=== PATIENT | male | born 1990 | race Caucasian/White ===

== ENCOUNTER 2022-04-01 22:48 | Emergency (ER) | payer BC, MEDICAID, SELFPAY ==
[2022-04-01 22:51] VITALS: BP 142/96; PULSE 75; RESP 18; TEMP 36.4; O2SAT 99; BMI 25.8
--- NOTE | 2022-04-01 23:32 | ED_ITS ---
HPI - General Adult General: Chief complaint: General Medical Stated complaint: HERNÁNDEZ Time Seen by Provider: 04/01/22 23:32 History of Present Illness: Mr. Cross is a 32-year-old gentleman who presents to the emergency room due to chest pain and headache. He reports that onset of symptoms was actually number months ago and he has had intermittent episodes at this time. He typically gets a sharp pain to left anterior chest followed by right-sided temporal headache. No specific provoking factors identified. Intensity when present is moderate to severe and resolved spontaneously. No other specific changes in health, exacerbating, or alleviating factors identified. Of note the patient reports that he has planned follow-up. He has been seen for similar and has had history of CT and CTA as well as an MRI. He has both neurology and cardiology follow-up scheduled. Onset (ago): month(s) Location: head and chest Severity: moderate Quality: stabbing Pain Consistency: intermittent Relieving factors: none Exacerbating factors: none Review of Systems General: Reports: 10 or more systems reviewed and unremarkable except in HPI and below PFSH ED PFSH: Medical History No significant past medical history Surgical History No significant past surgical history Social History Smoking and tobacco status: current every day smoker Physical Exam Const: COMMON NORMALS: alert GENERAL APPEARANCE: cooperative and well developed HENMT: COMMON NORMALS: normocephalic and atraumatic HEAD & SCALP: normocephalic and atraumatic Eye: COMMON NORMALS: conjunctivae normal CONJUNCTIVA: Yes conjunctivae normal SCLERA: sclerae normal Neck/C-Spine: COMMON NORMALS: supple GENERAL: Yes trachea midline Resp: COMMON NORMALS: normal respiratory effort and clear to auscultation bilaterally EFFORT & INSPECTION: Yes able to speak in complete sentences AUSCULTATION: clear to auscultation bilaterally Cardio: COMMON NORMALS: regular rate and regular rhythm RATE: regular rate RHYTHM: regular rhythm GI: COMMON NORMALS: Soft to palpation PALPATION: Yes Soft to palpation and No Tenderness to palpation present (GI) PERCUSSION: normal to percussion Extremity: GENERAL: Yes normal exam except as noted and No edema Neuro: COMMON NORMALS: moves all extremities SENSORIUM/ORIENTATION: Yes alert and No Orientation impaired Psych: COMMON NORMALS: mental status grossly normal and Normal thought process present THOUGHT PROCESS: Normal thought process present Course Vital Signs: Vital signs: Vital Signs Temperature 97.5 F L 04/01/22 22:51 Pulse Rate 69 04/02/22 00:24 Respiratory Rate 17 04/02/22 00:24 Blood Pressure 133/90 04/02/22 00:24 Pulse Oximetry 90 04/02/22 00:24 MDM - General Adult Medical Decision Making 32-year-old gentleman presenting with chest discomfort and head pain. He has had similar episodes in the past and has been evaluated. After discussion, the patient wishes to forego further testing in the emergency department. I discussed risks and benefits. Satisfactory for planned outpatient follow-up with cardiology and neurology. Medical Records I reviewed the patient's medical records. Lab Data I reviewed the patient's lab results. Discharge Plan Discharge Patient Disposition: Home Clinical Impression: Head pain, Chest pain Condition: Stable Discharge Orders: Discharge ED (Routine); Ordered 04/02/22 Ordered By: Sreedhar Luna Discharge Diet: Usual diet Discharge Activity: Increase activity as tolerated Activity Restrictions/Additional Instructions: Thank you for visiting the emergency department. You were seen and evaluated for symptoms as discussed including head pain and chest discomfort. The exact cause of your symptoms is unclear. Without doing additional testing here in the emergency department I cannot definitively rule out life-threatening conditions though based on your history I feel that you are appropriately doing the correct things in the outpatient setting. Please keep these appointments including your outpatient stress test. Return to the emergency department for anything that you are concerned about and feel needs emergency department evaluation. Coding Level of Care Code ED Pipe Cleaning Machine Operator for Ayanna Jimenez
[2022-04-02 00:24] VITALS: BP 133/90; PULSE 69; RESP 17; O2SAT 90
== END 2022-04-02 00:26 | disposition home or self-care (01) ==
PROVIDERS: Emergency Provider Emergency Medicine
DX: R51.9 Headache, unspecified (principal); R07.9 Chest pain, unspecified
CPT/HCPCS: 99282

== ENCOUNTER 2022-05-28 14:34 | Emergency (ER) | payer BC, MEDICAID, SELFPAY ==
[2022-05-28 14:40] VITALS: BP 133/78; PULSE 74; RESP 18; TEMP 36.7; O2SAT 98; BMI 25.8
--- NOTE | 2022-05-28 14:43 | XR_ITS ---
WS: [id number] XR chest 1V portable [id number] REASON FOR EXAM: CP FINDINGS: Mild tortuosity the thoracic aorta. Normal heart size. Calcified granulomatous disease in both hemithoraces. No acute pulmonary parenchymal or pleural abnormality. Bony thorax is intact. XR/XR chest 1V portable [id number] IMPRESSION: No acute chest abnormality.
[2022-05-28 15:52] LABS: Basophils # 0.1 10^3/uL (0.0-0.1); Basophils % 0.8 %; Eosinophils # 0.3 10^3/uL (0.0-0.8); Eosinophils % 2.6 %; Hematocrit 46.1 % (42.0-52.0); Hemoglobin 15.4 g/dL (11.7-16.6); Lymphocytes # 2.4 10^3/uL (0.8-4.8); Lymphocytes % 22.6 %; Mean Corpuscular HGB Conc 33.4 g/dL (30.0-36.0); Mean Corpuscular Hemoglobin 29.7 pg (28.0-34.0); Mean Platelet Volume 9.6 fL (7.4-10.4); Monocytes # 0.6 10^3/uL (0.2-0.9); Neutrophils # 7.26 10^3/uL (1.8-7.7); Neutrophils % 67.6 %; Nucleated Red Blood Cells % 0 %; Platelet Count 353 10^3/cmm (130-400); Red Blood Count 5.18 10^6/uL (4.1-5.3); Red Cell Distribution Width 12.2 % (12.1-15.1); White Blood Count 10.7 10^3/uL (4.0-10.0)
[2022-05-28 16:11] LABS: Alanine Aminotransferase 17 U/L (0-41); Albumin Level 4.3 g/dL (3.5-5.2); Alkaline Phosphatase 73 IU/L (40-130); Aspartate Amino Transferase 20 U/L (0-40); Blood Urea Nitrogen 5 mg/dL (6-20); Calcium 9.2 mg/dL (8.5-10.5); Carbon Dioxide 24 mmol/L (22-29); Chloride 107 mmol/L (98-107); Globulin 2.5 g/dL (1.3-4.6); Glomerular Filtration Rate 111.3 mL/min (90-130); Glucose 96 mg/dL (65-115); Osmolality Calculated 293 mOsm/kg (285-295); Sodium 143 mmol/L (136-145); Total Bilirubin 0.3 mg/dL (0.15-1.2); Total Protein 6.8 g/dL (6.6-8.7)
[2022-05-28 16:16] LABS: Troponin(5th) Baseline 6 ng/L (0-15)
[2022-05-28 16:44] VITALS: BP 143/56; PULSE 54; RESP 24; O2SAT 95
--- NOTE | 2022-05-28 16:45 | ED_ITS ---
HPI - Chest Pain General: Chief Complaint: Chest Pain Stated Complaint: chest pain/left side pain Time Seen by Provider: 05/28/22 16:08 History of Present Illness: Patient comes in with intermittent chest pain. States this has been going on for years. States that it has been getting worse recently. States his primary care provider ordered a stress test, however his insurance would not cover it. States comes in today after having another episode of left-sided chest palpitations/pressure that radiates into his left arm. States it last for few minutes when it occurs. He is asymptomatic currently at this time. States he is under a lot of stress. Associated symptoms: Reports palpitations; Deny abdominal pain, dyspnea, fever(s), nausea or vomiting Review of Systems Const: Denies: fever(s) or body aches Eyes: Denies: change in vision or blurry vision ENMT: Denies: throat pain or odynophagia Card: Reports: palpitations; Denies: chest pain Resp: Denies: dyspnea or productive cough GI: Denies: abdominal pain, nausea or vomiting : Denies: flank pain or dysuria Musc: Denies: neck pain or back pain Skin/Breast: Denies: rash or pruritus Neuro: Denies: headache(s) or numbness in extremities Psych: Denies: anxiety or change in appetite Endo: Denies: polyuria or excessive sweating PFSH ED PFSH: Family History Father Hypertension Social History Smoking and tobacco status: current every day smoker (1 ppd) cigarettes Packs smoked per day: 1 Physical Exam Const: COMMON NORMALS: no acute distress, patient oriented x3, healthy appearing and alert HENMT: COMMON NORMALS: normocephalic and atraumatic HEAD & SCALP: normocephalic and atraumatic Eye: COMMON NORMALS: Equal, round and reactive pupils present and EOMs intact bilaterally PUPIL: Yes Equal, round and reactive pupils present Neck/C-Spine: COMMON NORMALS: full ROM and supple Resp: COMMON NORMALS: normal respiratory effort, No retractions and No use of accessory muscles Cardio: COMMON NORMALS: regular rate and regular rhythm RATE: regular rate RHYTHM: regular rhythm GI: COMMON NORMALS: Normal to inspection, nondistended, normoactive bowel sounds present, Soft to palpation and non-tender PALPATION: Yes Soft to palpation Back/Pelvis: COMMON NORMALS: thoracic and lumbar spine normal to inspection and no thoracic nor lumbar tenderness Extremity: COMMON NORMALS: normal to inspection and full ROM Neuro: COMMON NORMALS: patient oriented x3 SENSORIUM/ORIENTATION: Yes alert Psych: COMMON NORMALS: mental status grossly normal and cooperative Skin: COMMON NORMALS: no rashes or lesions noted and no wounds GENERAL SKIN EXAM: no rashes or lesions noted Course Vital Signs: Vital signs: Vital Signs Temperature 98.0 F 05/28/22 14:40 Pulse Rate 74 05/28/22 14:40 Respiratory Rate 18 05/28/22 14:40 Blood Pressure 133/78 05/28/22 14:40 Pulse Oximetry 98 05/28/22 14:40 Oxygen Delivery Me thod 05/28/22 14:40 MDM - Chest Pain Medical Decision Making Patient comes in with intermittent chest pain. States this has been going on for years. States that it has been getting worse recently. States his primary care provider ordered a stress test, however his insurance would not cover it. States comes in today after having another episode of left-sided chest palpitations/pressure that radiates into his left arm. States it last for few minutes when it occurs. He is asymptomatic currently at this time. States he is under a lot of stress. Physical exam is unremarkable. Will check labs, EKG, and reassess. On reassessment I talked to the patient about the test results. We will order a cardiac event monitor and discharged with precautions return for worsening or changing symptoms. Lab Data : 05/28/22 15:42 05/28/22 15:42 Radiology Impressions Chest X-Ray 05/28/22 14:43 IMPRESSION: No acute chest abnormality. Laboratory Results WBC 10.7 10^3/uL (4.0-10.0) H 05/28/22 15:42 RBC 5.18 10^6/uL (4.1-5.3) 05/28/22 15:42 Hgb 15.4 g/dL (11.7-16.6) 05/28/22 15:42 Hct 46.1 % (42.0-52.0) 05/28/22 15:42 MCV 89.0 fl (80-94) 05/28/22 15:42 MCH 29.7 pg (28.0-34.0) 05/28/22 15:42 MCHC 33.4 g/dL (30.0-36.0) 05/28/22 15:42 RDW 12.2 % (12.1-15.1) 05/28/22 15:42 Plt Count 353 10^3/cmm (130-400) 05/28/22 15:42 MPV 9.6 fL (7.4-10.4) 05/28/22 15:42 Neut % (Auto) 67.6 % 05/28/22 15:42 Lymph % (Auto) 22.6 % 05/28/22 15:42 [place] % (Auto) 6.0 % 05/28/22 15:42 Eos % (Auto) 2.6 % 05/28/22 15:42 Baso % (Auto) 0.8 % 05/28/22 15:42 Neut # (Auto) 7.26 10^3/uL (1.8-7.7) 05/28/22 15:42 Lymph # (Auto) 2.4 10^3/uL (0.8-4.8) 05/28/22 15:42 [place] # (Auto) 0.6 10^3/uL (0.2-0.9) 05/28/22 15:42 Eos # (Auto) 0.3 10^3/uL (0.0-0.8) 05/28/22 15:42 Baso # (Auto) 0.1 10^3/uL (0.0-0.1) 05/28/22 15:42 Nucleated RBC % (auto) 0 % 05/28/22 15:42 Nucleated RBCs # 0.0 /100WBC 05/28/22 15:42 Sodium 143 mmol/L (136-145) 05/28/22 15:42 Potassium 4.0 mmol/L (3.5-5.1) 05/28/22 15:42 Chloride 107 mmol/L (98-107) 05/28/22 15:42 Carbon Dioxide 24 mmol/L (22-29) 05/28/22 15:42 Anion Gap 16.0 (5-19) 05/28/22 15:42 BUN 5 mg/dL (6-20) L 05/28/22 15:42 Creatinine 0.8 mg/dL (0.7-1.2) 05/28/22 15:42 GFR Calculation 111.3 mL/min (90-130) 05/28/22 15:42 Glucose 96 mg/dL (65-115) 05/28/22 15:42 Calculated Osmolality 293 mOsm/kg (285-295) 05/28/22 15:42 Calcium 9.2 mg/dL (8.5-10.5) 05/28/22 15:42 Total Bilirubin 0.3 mg/dL (0.15-1.2) 05/28/22 15:42 AST 20 U/L (0-40) 05/28/22 15:42 ALT 17 U/L (0-41) 05/28/22 15:42 Alkaline Phosphatase 73 IU/L (40-130) 05/28/22 15:42 Troponin T Baseline 6 ng/L (0-15) 05/28/22 15:42 Total Protein 6.8 g/dL (6.6-8.7) 05/28/22 15:42 Albumin 4.3 g/dL (3.5-5.2) 05/28/22 15:42 Globulin 2.5 g/dL (1.3-4.6) 05/28/22 15:42 Discharge Plan Discharge Patient Disposition: Home Clinical Impression: Palpitations Condition: Stable Prescriptions: No Action No Known Home Medications Discharge Orders: Discharge ED (Routine); Ordered 05/28/22 Ordered By: Tyler Martin Coding Level of Care Code ED Linter Drier Operator for Ayanna Jimenez
[2022-05-28 16:54] VITALS: BP 143/95; PULSE 76; RESP 16; O2SAT 100
--- NOTE | 2022-05-31 11:42 | DCPLANNER ---
Addendum entered by Alexandrea Briscoe 07/01/22 15:12: Patient had a follow up appointment scheduled with heart care - patient did attend appointment. Addendum entered by Alexandrea Briscoe 06/18/22 08:37: Patient has a follow up appointment scheduled for Wednesday, June 22, 2022 at 1:00. Clinic will call patient with appointment information. Original Note: global transportation manager had message to schedule an outpatient event monitor for patient. global transportation manager faxed signed order to heart care, who will call patient with appointment information.
== END 2022-05-28 16:55 | disposition home or self-care (01) ==
PROVIDERS: Emergency Medicine; Emergency Provider Emergency Medicine
DX: R00.2 Palpitations (principal); F17.210 Nicotine dependence, cigarettes, uncomplicated
CPT/HCPCS: 71045; 80053; 84484; 85025; 99285

== ENCOUNTER 2022-06-05 15:56 | Emergency (ER) | payer BC, MEDICAID, SELFPAY ==
[2022-06-05 16:11] VITALS: BP 141/79; PULSE 82; RESP 16; TEMP 36.9; O2SAT 99; BMI 25.8
[2022-06-05 16:22] VITALS: BP 141/79; PULSE 82; RESP 16; TEMP 36.9; O2SAT 99
--- NOTE | 2022-06-05 16:47 | ED_ITS ---
HPI - General Adult General: Chief complaint: General Medical Stated complaint: head feel hot Time Seen by Provider: 06/05/22 16:21 Source: patient Mode of arrival: ambulatory Limitations: no limitations History of Present Illness: Patient is a 32-year-old male who presents to ED today with a plethora of medical complaints that he feels like possibly started after COVID infection back in December. History is somewhat hard to follow. Essentially he has been having headaches and abnormal sensations to the back of his scalp and face that seem to be intermittent. He sometimes describes them as liquid dripping down the back of his head or face but also feels like at times he is not getting enough blood flow to his brain. Patient has met with a headache specialist and has had CT, CTA, MRI, and MRA of his head/neck all of which were normal. He has also been having intermittent sharp left-sided chest pains-again this has been intermittent for several months. He has no known cardiac history or cardiac risk factors. He states this too has been worked up extensively. At one point somebody is mention doing an outpatient stress test but this has not been completed. He also has some complaints of some numbness/tingling to the left arm but only from the area of the elbow to forearm. He has complaints of bilateral shoulder joint achiness at times. He has an appointment with a neurologist scheduled sometime in July but wonders if our neurologist could potentially see him sooner. He states he mainly is here because of the pain. He states he has been on several different medications all without relief. Onset (ago): month(s) Associated symptoms: Reports chest pain and headache(s); Deny dyspnea, nausea, rash, palpitations, syncope or vomiting Review of Systems Const: Denies: fever(s), chills or body aches ENMT: Denies: throat pain, odynophagia, nasal discharge, nasal congestion, post nasal drip or sinus pain Card: Reports: chest pain; Denies: palpitations, irregular heart rhythm, edema, swelling of feet/ankles, lightheadedness, syncope, pre-syncope, dyspnea on exertion, orthopnea, leg pain with exertion or acrocyanosis Resp: Denies: dyspnea, productive cough, non-productive cough, wheezing, hemoptysis or chest congestion GI: Denies: abdominal pain, nausea, vomiting or diarrhea Musc: Reports: neck pain, extremity pain and joint pain; Denies: back pain, extremity swelling, joint swelling, joint redness or limited range of motion Skin/Breast: Denies: rash, sores, new lesions or changes in skin color Neuro: Reports: headache(s), numbness in extremities and sensory changes; Denies: weakness in extremities, lack of coordination, difficulty walking or dizziness PFSH ED PFSH: Medical History No significant past medical history Surgical History No significant past surgical history Social History Smoking and tobacco status: current every day smoker Physical Exam Const: COMMON NORMALS: no acute distress, average body habitus, patient oriented x3, no limitations, healthy appearing, alert and well nourished GENERAL APPEARANCE: cooperative ORIENTATION/CONSCIOUSNESS: Yes awake, Yes oriented to person, Yes oriented to place and Yes oriented to time HENMT: COMMON NORMALS: normocephalic and atraumatic HEAD & SCALP: normal to inspection, normocephalic and atraumatic Eye: GENERAL EYE: appearance normal, both eyes and all related structures Neck/C-Spine: COMMON NORMALS: full ROM GENERAL: Yes normal visual inspection Resp: COMMON NORMALS: normal respiratory effort Extremity: COMMON NORMALS: normal to inspection and full ROM GENERAL: Yes normal exam except as noted Neuro: [place] COMA SCALE: document GCS findings [place] coma scale eye opening: Spontaneous [place] coma scale verbal response: Orientated [place] coma scale motor response: Obey commands [place] coma scale total score: 15 COMMON NORMALS: patient oriented x3, CN's II-XII intact bilaterally, moves all extremities, no focal motor deficits, no sensory deficits noted and gait normal SENSORIUM/ORIENTATION: Yes alert, Yes oriented to person, Yes oriented to place and Yes oriented to time Skin: COMMON NORMALS: no rashes or lesions noted GENERAL SKIN EXAM: no rashes or lesions noted Course Vital Signs: Vital signs: Vital Signs Temperature 98.4 F 06/05/22 16:22 Pulse Rate 82 06/05/22 16:22 Respiratory Rate 16 06/05/22 16:22 Blood Pressure 141/79 06/05/22 16:22 Pulse Oximetry 99 06/05/22 16:22 Oxygen Delivery Me thod 06/05/22 16:22 MDM - General Adult Medical Decision Making Patient does not have any acute complaints today. He states all of his complaints have seemed to be present since December following a COVID infection. By history, it sounds like patient has had an extensive work-up already in [place] to many of the symptoms including a CT, CTA, MRI, MRA of his head all of which were negative. He has had cardiac testing-again negative. I do not appreciate any focal deficits on his exam. I do not know that his history or physical exam warrants any form of emergent work-up today. He is requesting a potential sooner neurology [id number] will place referral for Dr. Haskins. Recommend continual follow-up with his primary care provider who can continue to work-up symptoms as indicated. Patient is requesting something for pain and these abnormal sensations that he is getting. Patient states he has tried pain medication, NSAIDs, steroids, muscle relaxers all without much relief. I think potentially trying him on some Lyrica might help. Return to ED precautions given. Otherwise I think he needs to continue seeing PCP. Discharge Plan Discharge Patient Disposition: Home Clinical Impression: Burning sensation Condition: Stable Prescriptions: New Lyrica 75 mg capsule 75 mg PO BID Qty: 60 0RF Rx Instructions: May increase to 150mg BID after a week if no clinical response. Discharge Orders: Discharge ED (Routine); Ordered 06/05/22 Ordered By: Nicole Batista Coding Level of Care Code ED [employer]v Parts And Service Director for Aynana Jimenez
--- NOTE | 2022-06-08 09:36 | DCPLANNER ---
Addendum entered by Alexandrea Briscoe 07/01/22 14:35: Patient has a follow up appointment scheduled with neurology - patient did attend appointment. Addendum entered by Alexandrea Briscoe 06/16/22 13:26: Patient has a follow up appointment scheduled for Tuesday, June 28, 2022 at 12:[address] Haskins at neurology. Clinic will call patient with appointment information. Original Note: life sciences manager had message to schedule a follow up appointment for patient with neurology. life sciences manager sent patients information to the front office staff at neurology. Patients information will be printed and reviewed. Clinic will call patient with appointment information.
== END 2022-06-05 17:06 | disposition home or self-care (01) ==
PROVIDERS: Emergency Provider Physician Assistant
DX: R20.8 Other disturbances of skin sensation (principal); F17.210 Nicotine dependence, cigarettes, uncomplicated
CPT/HCPCS: 99283

== ENCOUNTER 2022-06-14 11:28 | Emergency (ER) | payer BC, MEDICAID, SELFPAY ==
[2022-06-14 11:44] VITALS: BP 137/82; PULSE 87; RESP 18; TEMP 37.1; O2SAT 98; BMI 25.8
--- NOTE | 2022-06-14 12:44 | W.ED.EXTPRO ---
HPI - Extremity Problem General: Chief complaint: Back Pain/Injury Stated complaint: Back and shoulder pain Time Seen by Provider: 06/14/22 11:51 Source: patient Mode of arrival: ambulatory Limitations: no limitations History of Present Illness: Patient is a 32-year-old male who presents to ED today with a main complaint of left shoulder pain. Patient states pain has been present intermittently for months but more constant over the past three days. Patient has multiple medical issues that he is currently being worked up for. I saw him last time in the ED and his history was quite overwhelming at that time. All of the complaints from his last visit are still present today. He has continued to seek medical re-evaluations at multiple medical facilities and has been seen by a provider in [place] and [place] since his last ED visit here. Upon last visit we had tried him on Lyrica but he states he took a total of 3 doses and wasn't better so discontinued it. It was also recommended he discontinue by provider at [place]. His main complaint today is his left shoulder pain that seems to be worse with range of motion. No known injury or trauma. Again patient states he has had bilateral shoulder stiffness and pain intermittently for months now. MD Complaint: joint pain Onset (ago): month(s) Pain Consistency: intermittent Location: left and upper extremity (shoulder) Radiation: none Relieving factors: immobilization Exacerbating factors: range of motion Associated symptoms: Reports no associated symptoms and chest pain (chronic intermittent); Deny fever(s) or rash Review of Systems Const: Denies: fever(s), chills, body aches, fatigue or malaise Card: Reports: chest pain (chronic intermittent) Musc: Reports: neck pain (chronic), back pain (chronic), joint pain (chronic; intermittent) and limited range of motion (complains of dec ROM of L shoulder); Denies: extremity pain, extremity swelling, joint swelling, joint redness or joint warmth Skin/Breast: Denies: rash Neuro: Reports: headache(s) (chronic; intermittent); Denies: lack of coordination, difficulty walking, frequent falls or Slurred speech present [facility] ED PFSH: Medical History No significant past medical history Surgical History No significant past surgical history Social History Smoking and tobacco status: current every day smoker Physical Exam Const: COMMON NORMALS: no acute distress, average body habitus, patient oriented x3, no limitations, healthy appearing, alert and well nourished GENERAL APPEARANCE: cooperative ORIENTATION/CONSCIOUSNESS: Yes awake, Yes oriented to person, Yes oriented to place and Yes oriented to time HENMT: COMMON NORMALS: normocephalic and atraumatic HEAD & SCALP: normal to inspection, normocephalic and atraumatic Neck/C-Spine: COMMON NORMALS: full ROM GENERAL: Yes normal visual inspection CERVICAL SPINE: Yes cervical ROM normal, No Cervical spine tenderness, No step off deformity, Yes Paracervical muscle tenderness left and No Paracervical spasm Resp: COMMON NORMALS: normal respiratory effort and clear to auscultation bilaterally AUSCULTATION: clear to auscultation bilaterally Cardio: COMMON NORMALS: regular rate and regular rhythm RATE: regular rate RHYTHM: regular rhythm Extremity: COMMON NORMALS: capillary refill normal, no joint enlargement, no clubbing, cyanosis or edema and no pedal edema GENERAL: Yes normal exam except as noted LEFT UPPER EXTREMITY: Yes shoulder joint Left shoulder joint: Yes ROM (normal flexion/extension/IR and ER; pain with abduction) and Yes neurovascular exam (normal) Neuro: KENYATTA COMA SCALE: document GCS findings [place] coma scale eye opening: Spontaneous [place] coma scale verbal response: Orientated [place] coma scale motor response: Obey commands [place] coma scale total score: 15 COMMON NORMALS: patient oriented x3, moves all extremities, no focal motor deficits and no sensory deficits noted SENSORIUM/ORIENTATION: Yes alert, Yes oriented to person, Yes oriented to place and Yes oriented to time MOTOR EXAM: 5/5 motor strength present throughout Skin: COMMON NORMALS: no rashes or lesions noted GENERAL SKIN EXAM: no rashes or lesions noted Course Vital Signs: Vital signs: Vital Signs Temperature 98.7 F 06/14/22 11:44 Pulse Rate 87 06/14/22 11:44 Respiratory Rate 18 06/14/22 11:44 Blood Pressure 137/82 06/14/22 11:44 Pulse Oximetry 98 06/14/22 11:44 Oxygen Delivery Me thod 06/14/22 11:44 MDM - Extremity (Nontraumatic) Medical Decision Making Patient is a 32-year-old male with a complex history. Please see last visit HPI as well as today for full history. He has sought extensive medical evaluations at multiple medical facilities. His main complaint today seems to be his left shoulder pain. He does have some chronic intermittent complaints regarding his neck. He is tender to palpation of his left paraspinal musculature. No known injury or trauma to the shoulder. Based on his history and other complaints symptoms could be related to a cervical radiculopathy although pathology to the shoulder itself is possible. He states he has been on countless rounds of steroids and muscle relaxers and NSAIDs all without relief. He discontinued the Lyrica after a total of 3 doses that was prescribed at last visit. He is willing to try Gabapentin this time. States he will follow up with his PCP in [place] for further evaluation. Discharge Plan Discharge Patient Disposition: Home Clinical Impression: Cervical radicular pain Condition: Stable Prescriptions: New gabapentin 300 mg capsule 300 mg PO DAILY Qty: 60 0RF Rx Instructions: Take 300mg PO QD x 1 day, then 300mg PO BID x 1 day, then 300mg PO TID thereafter Discontinued pregabalin [Lyrica] 75 mg capsule 75 mg PO BID Qty: 60 0RF Rx Instructions: May increase to 150mg BID after a week if no clinical response. Discharge Orders: Discharge ED (Routine); Ordered 06/14/22 Ordered By: Nicole Batista Coding Level of Care Code ED Ems Instructor for Ayanna Jimenez
== END 2022-06-14 13:07 | disposition home or self-care (01) ==
PROVIDERS: Emergency Provider Physician Assistant
DX: M54.12 Radiculopathy, cervical region (principal); F17.210 Nicotine dependence, cigarettes, uncomplicated
CPT/HCPCS: 99283

== ENCOUNTER 2022-07-03 16:25 | Emergency (ER) | payer BC, MEDICAID, SELFPAY ==
[2022-07-03 16:28] VITALS: BP 138/97; PULSE 82; RESP 14; TEMP 36.6; O2SAT 98; BMI 26.5
--- NOTE | 2022-07-03 16:37 | ED_ITS ---
HPI - Headache General: Chief Complaint: Headache Stated Complaint: Head pain, Numbness Time Seen by Provider: 07/03/22 16:34 Source: patient Mode of arrival: ambulatory Limitations: no limitations History of Present Illness: 32-year-old male states been having headaches along with neck pains for 7 months. He states has been chronic he has had chronic numbness to his left arm as well. He states he had an MRI done of his head recently that was negative he states that his PCP had ordered him an MRI of his C-spine he has not received it yet he states he wants to get one today. States pain is an 8 out of 10 he has no weakness denies any worsening proving factors. Denies any fever Associated symptoms: Deny chest pain, fever(s), nausea, rash or vomiting Review of Systems Const: Denies: fever(s), chills, body aches or change in appetite Eyes: Denies: blurry vision or eye discomfort ENMT: Denies: throat pain or dental pain Card: Denies: chest pain Resp: Denies: dyspnea GI: Denies: abdominal pain, nausea, vomiting or diarrhea : Denies: dysuria Musc: Reports: neck pain Skin/Breast: Denies: rash Neuro: Reports: headache(s) Psych: Denies: depression Ildefonso/Lymph: Denies: easy bruising All/Imm: Denies: urticaria PFSH ED PFSH: Medical History No significant past medical history Surgical History No significant past surgical history Family History Father Hypertension Social History Smoking and tobacco status: never smoked Physical Exam Const: COMMON NORMALS: no acute distress, patient oriented x3 and healthy appearing HENMT: COMMON NORMALS: normocephalic and atraumatic HEAD & SCALP: normocephalic and atraumatic Eye: COMMON NORMALS: Equal, round and reactive pupils present and EOMs intact bilaterally PUPIL: Yes Equal, round and reactive pupils present Neck/C-Spine: COMMON NORMALS: full ROM and supple Chest: COMMONS NORMALS: normal inspection of the chest Resp: COMMON NORMALS: normal respiratory effort Cardio: COMMON NORMALS: regular rate and No murmurs present (Cardio) RATE: regular rate GI: INSPECTION: Yes normal to inspection Extremity: COMMON NORMALS: normal to inspection Neuro: COMMON NORMALS: patient oriented x3, moves all extremities and no focal motor deficits Psych: COMMON NORMALS: mental status grossly normal, Normal thought process present and cooperative THOUGHT PROCESS: Normal thought process present Skin: COMMON NORMALS: no rashes or lesions noted and no wounds GENERAL SKIN EXAM: no rashes or lesions noted Course Vital Signs: Vital signs: Vital Signs Temperature 97.8 F 07/03/22 16:28 Pulse Rate 82 07/03/22 16:28 Respiratory Rate 14 07/03/22 16:28 Blood Pressure 138/97 07/03/22 16:28 Pulse Oximetry 98 07/03/22 16:28 Oxygen Delivery Me thod 07/03/22 16:28 MDM - Headache Medical Decision Making Patient presents here with headache and neck pain its been chronic in nature going on for 7 months. Patient is quite angry here he is demanding an MRI he told me that his physician told him if any came to the ER we would do 1 I explained to him that we do not do outpatient MRI through the ER he has a scheduled MRI and he is to get outpatient I am not able to do the MRI emergently here he has no signs of any acute cord compression or abscess requires an emergent MRI patient became extremely angry refused any treatment patient discharge at this time. Discharge Plan Discharge Patient Disposition: Home Clinical Impression: Neck Pain, Head pain Condition: Stable Prescriptions: No Action ibuprofen 800 mg tablet 800 mg PO Q8H PRN (Reason: pain) Qty: 20 0RF (DME) blood pressure cuff 0 .Route .MEDSUPPLY Qty: 1 0RF Rx Instructions: As directed venlafaxine 75 mg tablet extended release 24hr 75 mg PO DAILY Qty: 14 0RF Rx Instructions: Take one tablet daily for 2 weeks. Then, increase to 150 mg daily. venlafaxine 150 mg tablet extended release 24 hr 150 mg PO DAILY Qty: 30 1RF Rx Instructions: Take one tablet daily. Discharge Orders: Discharge ED (Routine); Ordered 07/03/22 Ordered By: Yuly Brock Referrals: Talya Villavicencio NP [Primary Care Provider] - Discharge Diet: Advance as tolerated Discharge Activity: Resume usual activity Patient Instructions: Headache Coding Level of Care Code ED Aeronautical Engineering Officer for Ayanna Jimenez
== END 2022-07-03 16:46 | disposition home or self-care (01) ==
PROVIDERS: Emergency Provider Emergency Medicine; PCP Nurse Practitioner Family
DX: R51.9 Headache, unspecified (principal); M54.2 Cervicalgia
CPT/HCPCS: 99281

== ENCOUNTER 2022-07-06 08:08 | Outpatient (CLI) | payer BC, MEDICAID, SELFPAY ==
--- NOTE | 2022-07-06 08:00 | MR_ITS ---
WS: [id number] MRI CERVICAL SPINE NONCONTRAST HISTORY: M54.2 - Cervicalgia, LEFT arm numbness. COMPARISON: None available. Technique: Multiplanar, multisequence noncontrast imaging of the cervical spine. Mild straightening of the normal cervical lordosis. No fracture or marrow edema. Mild disc space narrowing and desiccation at C4-5 and C5-6. Signal within the cervical cord is normal. Visualized posterior fossa is unremarkable. Craniocervical junction, C1 and C2 relationship, odontoid process and soft tissues are normal. C2-C3: Normal. C3-C4: Normal. C4-C5: Central to LEFT paracentral disc protrusion. Moderate encroachment into the LEFT foramen. Effa cement and deformity of the LEFT lateral CSF. Small bilateral foraminal osteophytes. C5-C6: Small central disc protrusion and small foraminal osteophytes. C6-C7: Moderate RIGHT foraminal osteophyte and disc protrusion causing mild deformity and narrowing o f the foramen. C7-T1: Normal. T1-T2: Shallow central disc protrusion. No high-grade stenosis. MR/MR cervical spin wo con* [id number] IMPRESSION: 1. C4-5; Central to LEFT paracentral disc protrusion with moderate LEFT forami nal narrowing. Osteophytes contributing to the moderate foraminal stenosis also . 2. Small central disc protrusion at C5-6 and foraminal osteophytes with no hig h-grade stenosis. 3. C6-7; moderate RIGHT foraminal disc osteophyte causing moderate foraminal s tenosis. 4. Shallow central disc protrusion at T1-2.
== END 2022-07-06 08:09 | disposition home or self-care (01) ==
LOC: RAD 08:08
PROVIDERS: PCP Nurse Practitioner Family; Visit Provider Specialist
DX: M51.24 Other intervertebral disc displacement, thoracic region (principal); M25.78 Osteophyte, vertebrae; M50.222 Other cervical disc displacement at C5-C6 level
CPT/HCPCS: 72141

== ENCOUNTER → 2022-07-29 10:25 | Outpatient (BNVA) | payer BC, MEDICAID, SELFPAY | PROVIDERS: PCP Nurse Practitioner Family; Visit Provider Physician Assistant | DX: M47.22 Other spondylosis with radiculopathy, cervical region (principal); M50.221 Other cervical disc displacement at C4-C5 level; M50.222 Other cervical disc displacement at C5-C6 level; M50.223 Other cervical disc displacement at C6-C7 level | CPT/HCPCS: 72050 ==

== ENCOUNTER 2022-07-29 11:26 | Emergency (ER) | payer BC, MEDICAID, SELFPAY ==
[2022-07-29 11:36] VITALS: BP 131/87; PULSE 75; RESP 16; TEMP 36.4; O2SAT 100; BMI 25.8
--- NOTE | 2022-07-29 13:02 | PC.NURSE ---
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
== END 2022-07-29 13:15 | disposition left against medical advice (07) ==
PROVIDERS: Emergency Provider Family Medicine; PCP Nurse Practitioner Family
DX: Z53.21 Procedure and treatment not carried out due to patient leaving prior to being seen by health care provider (principal)
CPT/HCPCS: 85651; 86003; 86140

== ENCOUNTER → 2022-08-04 14:17 | Outpatient (BNVA) | payer BC, MEDICAID, SELFPAY | PROVIDERS: PCP Nurse Practitioner Family; Visit Provider Nurse Practitioner Family | DX: K90.49 Malabsorption due to intolerance, not elsewhere classified (principal); R79.82 Elevated C-reactive protein (CRP); R70.0 Elevated erythrocyte sedimentation rate | CPT/HCPCS: 84443; 86003; 86160; 86162; 86200; 86235; 86255; 86376; 86431 ==

== ENCOUNTER 2022-08-09 21:08 | Emergency (ER) | payer BC, MEDICAID, SELFPAY ==
[2022-08-09 21:47] VITALS: BP 137/81; PULSE 77; RESP 18; TEMP 36.6; O2SAT 98; BMI 25.8
--- NOTE | 2022-08-09 22:06 | W.ED.GENADLT ---
HPI - General Adult General: Chief complaint: General Medical Stated complaint: just wants neck brace Time Seen by Provider: 08/09/22 22:06 History of Present Illness: 32-year-old male comes in with complaints of neck pain. Neck pain is chronic. Patient reports he has 2 bulging disks. Patient was requesting a hard c-collar to help stretch his neck so as not as uncomfortable. Patient does use a cervical pump at home which he says he gets relief with. Patient appears nontoxic. Patient appears in no severe pain. Associated symptoms: Deny chest pain or dyspnea Review of Systems General: Reports: 10 or more systems reviewed and unremarkable except in HPI and below Card: Denies: chest pain Resp: Denies: dyspnea Musc: Reports: neck pain PFSH ED PFSH: Medical History No significant past medical history Surgical History No significant past surgical history Family History Father Hypertension Social History Smoking and tobacco status: never smoked Alcohol intake: never Physical Exam Const: COMMON NORMALS: alert HENMT: COMMON NORMALS: normocephalic HEAD & SCALP: normocephalic Neck/C-Spine: CERVICAL SPINE: Yes cervical ROM normal and Yes Cervical spine tenderness Resp: COMMON NORMALS: normal respiratory effort Cardio: COMMON NORMALS: regular rate RATE: regular rate Extremity: COMMON NORMALS: normal to inspection Neuro: SENSORIUM/ORIENTATION: Yes alert Skin: COMMON NORMALS: no rashes or lesions noted GENERAL SKIN EXAM: no rashes or lesions noted Course Vital Signs: Vital signs: Vital Signs Temperature 97.9 F 08/09/22 21:47 Pulse Rate 77 08/09/22 21:47 Respiratory Rate 18 08/09/22 21:47 Blood Pressure 137/81 08/09/22 21:47 Pulse Oximetry 98 08/09/22 21:47 Oxygen Delivery Me thod 08/09/22 21:47 MDM - General Adult Medical Decision Making 32-year-old male patient comes in today with complaints of neck pain. Patient is requesting a hard c-collar to help with his neck pain. Patient has had no recent injury. Patient states that he has bulging disks in his neck. Patient's exam is unremarkable. Differential diagnosis include intervertebral disc disease, facet arthropathy, malingering, chronic pain syndrome. Patient was given 2 hydrocodone tablets 7-1/2 mg?325 to use 1 every 6 hours as needed. Patient was recommended to follow-up with primary care, or specialist for further treatment regarding his chronic pain. Denied hard cervical collar as it was not appropriate for patient's use, and soft collar is were not available. Discharge Plan Discharge Patient Disposition: Home Clinical Impression: Cervical spondylosis with radiculopathy Condition: Stable Prescriptions: No Action tramadol 50 mg tablet 50 mg PO Q4H PRN (Reason: pain) Qty: 30 0RF Discharge Orders: Discharge ED (Routine); Ordered 08/09/22 Ordered By: Kwaku Tubbs Referrals: Talya Villavicencio, MOLD INSERT CHANGER [Primary Care Provider] - Discharge Diet: Usual diet Discharge Activity: Increase activity as tolerated Patient Instructions: Neck Pain (ED), Opioid Safety Activity Restrictions/Additional Instructions: Follow-up with specialists or primary care for further treatment evaluation. As the emergency department were not able to manage chronic pain. Coding Level of Care Code ED Esthetics Instructor for Chg Fwd Exam Detailed
[2022-08-09] MEDS: HYDROcodone-acetaminophen 7.5-325 mg Tablet 2 TAB PO (22:24)
== END 2022-08-09 22:28 | disposition home or self-care (01) ==
PROVIDERS: Emergency Provider Nurse Practitioner Family; PCP Nurse Practitioner Family
DX: M47.22 Other spondylosis with radiculopathy, cervical region (principal)
CPT/HCPCS: 99283

== ENCOUNTER 2022-08-23 16:37 | Emergency (ER) | payer BC, MEDICAID, SELFPAY ==
[2022-08-23 17:12] VITALS: BP 160/91; PULSE 95; RESP 16; TEMP 36.4; O2SAT 99
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
== END 2022-08-23 17:50 | disposition home or self-care (01) ==
PROVIDERS: Emergency Provider Nurse Practitioner Family; PCP Nurse Practitioner Family
DX: S16.1XXA Strain of muscle, fascia and tendon at neck level, initial encounter (principal); Y35.813A Legal intervention involving manhandling, suspect injured, initial encounter
CPT/HCPCS: 99283

== ENCOUNTER 2022-10-03 20:19 | Emergency (ER) | payer BC, MEDICAID, SELFPAY ==
[2022-10-03 20:29] VITALS: BP 135/81; PULSE 93; RESP 16; TEMP 36.5; O2SAT 99; BMI 26.5
--- NOTE | 2022-10-03 20:46 | ED_ITS ---
HPI - Neck Pain/Injury General: Chief Complaint: Neck Pain/Injury Stated Complaint: knot on neck Time Seen by Provider: 10/03/22 20:39 History of Present Illness: 32-year-old male comes in today for complaints of exacerbation of chronic neck pain. Patient denies any falls or injury. Patient has a history of herniated disks to the cervical neck. Patient appears nontoxic. Patient appears in no acute distress. Review of Systems Musc: Reports: neck pain PFSH ED PFSH: Medical History No significant past medical history Surgical History No significant past surgical history Family History Father Hypertension Social History Smoking and tobacco status: never smoked Alcohol intake: never Physical Exam Const: COMMON NORMALS: alert HENMT: COMMON NORMALS: normocephalic HEAD & SCALP: normocephalic Neck/C-Spine: CERVICAL SPINE: Yes Paracervical muscle tenderness left Resp: COMMON NORMALS: normal respiratory effort Cardio: COMMON NORMALS: regular rate RATE: regular rate Extremity: COMMON NORMALS: normal to inspection Neuro: SENSORIUM/ORIENTATION: Yes alert Skin: COMMON NORMALS: turgor normal GENERAL SKIN EXAM: turgor normal Course Vital Signs: Vital signs: Vital Signs Temperature 97.7 F 10/03/22 20:29 Pulse Rate 93 10/03/22 20:29 Respiratory Rate 16 10/03/22 20:29 Blood Pressure 135/81 10/03/22 20:29 Pulse Oximetry 99 10/03/22 20:29 MDM - Neck Pain/Injury Medical Decision Making 32-year-old male comes in today for complaints of left side neck discomfort. Patient has noticed vertebral tenderness on palpation. Skin is warm and dry. Vital signs are normal. Differential diagnosis includes but not limited to cervical neck strain, intervertebral disc disease, facet arthropathy. Patient has been using ibuprofen with minimal relief of pain. Patient was given 10 mg dexamethasone IM for inflammation, and 1 hydrocodone for acute pain. Recommended patient continue on his ibuprofen 800 mg twice a day for the next 7 to 10 days. Patient was written for 10 tablets of hydrocodone for severe pain. Patient reported understanding of care plan and need for follow-up or return to the ER. Discharge Plan Discharge Patient Disposition: Home Clinical Impression: Neck Pain, Protrusion of cervical intervertebral disc Condition: Stable Prescriptions: Continued hydrocodone-acetaminophen 7.5-325 mg tablet 1 tab PO Q6H PRN (Reason: pain (scale score 7-10)) 5 Days Qty: 10 0RF No Action tramadol 50 mg tablet 50 mg PO Q4H PRN (Reason: pain) Qty: 30 0RF Discharge Orders: Discharge ED (Routine); Ordered 10/03/22 Ordered By: Kwaku Tubbs Discharge Diet: Usual diet Discharge Activity: Increase activity as tolerated Patient Instructions: Neck Pain (ED) Activity Restrictions/Additional Instructions: Continue with ibuprofen 800 mg 2 times a day. Use hydrocodone for severe pain. Drink plenty of water with medication. Follow-up with primary care or specialist for further treatment and evaluation. Return to ER for new concerns or worsening symptoms. Coding Level of Care Code ED Refrigerated Cargo Clerk for Ayanna Jimenez
[2022-10-03] MEDS: HYDROcodone-acetaminophen 7.5-325 mg Tablet 1 TAB PO (21:13)
[2022-10-03] MEDS: dexamethasone 10 mg/mL INJ IM (21:13)
== END 2022-10-03 21:16 | disposition home or self-care (01) ==
PROVIDERS: Emergency Provider Nurse Practitioner Family
DX: M50.20 Other cervical disc displacement, unspecified cervical region (principal)
CPT/HCPCS: 96372; 99284; J1100

== ENCOUNTER 2022-11-14 16:57 | Emergency (ER) | payer BC, MEDICAID, SELFPAY ==
[2022-11-14 16:58] VITALS: BP 140/97; PULSE 86; RESP 14; TEMP 36.6; O2SAT 96
--- NOTE | 2022-11-14 17:02 | ECG_ITS ---
[facility] Test Date: 2022-11-14 Pat Name: Sreedhar Cross Department: Room: Gender: Male Manager State: : 1990 Requested By: Kwaku Johnson Order Number: [id number] Wellington MD: Shai Medrano M.D. Measurements Intervals [place] Rate: 79 P: 47 [place]: 137 QRS: 51 QRSD: 98 T: 18 QT: 341 QTc: 392 Interpretive Statements SINUS RHYTHM POSSIBLE RIGHT VENTRICULAR CONDUCTION DELAY [RSR (QR) IN V1/V2] No previous ECG available for comparison Electronically Signed On 11-14-2022 21:41:10 LAPPER by Shai Medrano M.D. [email or web address]
[2022-11-14 17:13] VITALS: BP 146/87; PULSE 80; RESP 12; O2SAT 98
--- NOTE | 2022-11-14 17:13 | XRR_ITS ---
PROCEDURE INFORMATION: Exam: XR Chest Exam date and time: 11/14/2022 5:27 PM Age: 32 years old Clinical indication: Sternal or substernal pain; Additional info: Chest pain TECHNIQUE: Imaging protocol: Radiologic exam of the chest. Views: 1 view. COMPARISON: CR XR chest 1V portable [id number] 05/28/2022 2:54 PM FINDINGS: Lungs: Unremarkable. No consolidation. Pleural spaces: There is no pleural effusion or pneumothorax. Heart/Mediastinum: Cardiomediastinal contours are unremarkable. Bones/joints: Bones are unremarkable. XR/XR chest 1V portable [id number] IMPRESSION: No acute findings.
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
[2022-11-14 17:39] LABS: Basophils # 0.1 10^3/uL (0.0-0.1); Basophils % 0.9 %; Eosinophils # 0.4 10^3/uL (0.0-0.8); Hematocrit 49.2 % (42.0-52.0); Hemoglobin 16.5 g/dL (11.7-16.6); Lymphocytes % 23.3 %; Mean Corpuscular HGB Conc 33.5 g/dL (30.0-36.0); Mean Corpuscular Volume 86.6 fl (80-94); Mean Platelet Volume 9.3 fL (7.4-10.4); Monocytes % 7.4 %; Neutrophils % 65.1 %; Nucleated Red Blood Cells % 0 %; Platelet Count 379 10^3/cmm (130-400); Red Blood Count 5.68 10^6/uL (4.1-5.3); Red Cell Distribution Width 11.8 % (12.1-15.1); White Blood Count 12.8 10^3/uL (4.0-10.0)
[2022-11-14 18:00] VITALS: BP 139/87; PULSE 81; RESP 19; O2SAT 96
[2022-11-14 18:00] LABS: D Dimer <= 0.27 ug/mIFEU (0-0.59)
--- NOTE | 2022-11-14 18:03 | PC.NURSE ---
PT PLACED ON CONTINUOUS NIBP, SPO2, AND CM
[2022-11-14 18:09] LABS: Troponin(5th) Baseline 6 ng/L (0-15)
[2022-11-14 18:19] LABS: Alanine Aminotransferase 22 U/L (0-41); Albumin Level 4.3 g/dL (3.5-5.2); Alkaline Phosphatase 78 U/L (40-130); Anion Gap 13.9 (5-19); Aspartate Amino Transferase 17 U/L (0-40); Blood Urea Nitrogen 9 mg/dL (6-20); Calcium 9.4 mg/dL (8.5-10.5); Carbon Dioxide 27 mmol/L (22-29); Chloride 101 mmol/L (98-107); Globulin 3.3 g/dL (1.3-4.6); Glomerular Filtration Rate 111.3 mL/min (90-130); Glucose 96 mg/dL (65-115); NT Pro B Type Natriuretic Pept 36 pg/mL (0-125); Osmolality Calculated 285 mOsm/kg (285-295); Potassium 3.9 mmol/L (3.5-5.1); Sodium 138 mmol/L (136-145); Total Bilirubin 0.3 mg/dL (0.15-1.2); Total Protein 7.6 g/dL (6.6-8.7)
[2022-11-14 18:30] VITALS: BP 127/82; PULSE 73; RESP 16; O2SAT 95
[2022-11-14] MEDS: HYDROcodone-acetaminophen 7.5-325 mg Tablet 1 TAB PO (19:10)
== END 2022-11-14 19:17 | disposition home or self-care (01) ==
PROVIDERS: Emergency Provider Nurse Practitioner Family
DX: M54.2 Cervicalgia (principal)
CPT/HCPCS: 71045; 80053; 83880; 84484; 85025; 85378; 93005; 99285

== ENCOUNTER 2022-11-26 17:16 | Emergency (ER) | payer BC, MEDICAID, SELFPAY ==
[2022-11-26 17:19] VITALS: BP 118/83; PULSE 89; RESP 16; TEMP 36.6; O2SAT 98
--- NOTE | 2022-11-26 18:48 | W.ED.GENADLT ---
HPI - General Adult General: Chief complaint: Headache Stated complaint: possible BP and meds issue Time Seen by Provider: 11/26/22 18:13 Source: patient Mode of arrival: ambulatory Limitations: no limitations History of Present Illness: This patient is in the emergency department to have his blood pressure rechecked and also discussed many of his other physical symptoms. He has a longstanding history of recurrent headaches that have been predominantly left-sided and been evaluated in multiple occasions and he has been followed in the past by the headache clinic in [place]. He has been through various therapies there to include sumatriptan, sounds like trigger point and cervical genic headache injection treatments etc. He is also had other evaluations by neurosurgery to include nerve conduction studies etc. regarding some predominantly left-sided sensory symptoms without any focal or motor weakness. Most recently over the past few weeks he has had steady increases in blood pressure which culminated in a couple of visits to [facility] over the past several days in which he was evaluated and initially discharged without treatment and then ultimately started on lisinopril. He reports blood pressures in the range of 200/110 at times. He said he started his lisinopril 10 mg this morning. He states that earlier before he took his blood pressure medicine he felt his typical symptoms of some left head pressure left facial and left shoulder symptoms which were prime dominantly tingling. No associated focal weakness, difficulty with speech, other ongoing symptoms. He states since he took start his lisinopril as blood pressure has been reassuring the rest of the day. He denies any exertional chest pain, shortness of breath etc. He also describes other various somatic symptoms some discontiguous and never focal. He does relate that he has a very stressful life and sometimes some of the symptoms seem to be associated with an distress seems to be more manifest. He has a primary care doctor as well as other physicians he has been seeking care from in the past. Associated symptoms: Reports headache(s) and palpitations; Deny dyspnea, nausea, rash or vomiting Review of Systems Const: Denies: fever(s) or chills Eyes: Denies: change in vision ENMT: Denies: throat pain, nasal discharge or nasal congestion Card: Reports: palpitations; Denies: irregular heart rhythm or lightheadedness Resp: Denies: dyspnea GI: Denies: abdominal pain, nausea or vomiting : Denies: flank pain, difficulty urinating or dysuria Musc: Reports: neck pain and extremity pain Skin/Breast: Denies: rash, pruritus or erythema Neuro: Reports: headache(s) and numbness in extremities; Denies: weakness in extremities, Slurred speech present or difficulty communicating thoughts Psych: Reports: anxiety; Denies: depression or mood swings Endo: Denies: polyuria or polydipsia PFSH ED PFSH: Medical History No significant past medical history Surgical History No significant past surgical history Family History Father Hypertension Social History Smoking and tobacco status: never smoked Alcohol intake: never Physical Exam Narrative: EXAM NARRATIVE: Patient makes good eye contact speech is goal-directed he appears to be well directed and his speech and fluent. Const: COMMON NORMALS: no acute distress, average body habitus and patient oriented x3 GENERAL APPEARANCE: cooperative and comfortable HENMT: COMMON NORMALS: normocephalic, moist oral mucous membranes and oropharynx normal HEAD & SCALP: normocephalic FACE & SINUS: normal facial exam and face symmetric Eye: COMMON NORMALS: Equal, round and reactive pupils present, EOMs intact bilaterally and conjunctivae normal CONJUNCTIVA: Yes conjunctivae normal PUPIL: Yes Equal, round and reactive pupils present Neck/C-Spine: COMMON NORMALS: full ROM, supple, Thyroid normal and No carotid bruits THYROID: Thyroid normal OTHER: Risk extreme right rotation he has tenderness along the posterior sternocleidomastoid muscles as well as some along the superior trapezius. This these findings are on the left side there are no right-sided findings. Lymph: LYMPHATIC: no lymphadenopathy noted Chest: COMMONS NORMALS: normal inspection of the chest OTHER: He has some left anterior chest wall tenderness to palpation over the medial pectoralis muscle. The symptoms are exacerbated by extension of his left shoulder. External rotation and Resp: COMMON NORMALS: normal respiratory effort, No use of accessory muscles and clear to auscultation bilaterally EFFORT & INSPECTION: Yes able to speak in complete sentences AUSCULTATION: clear to auscultation bilaterally Cardio: COMMON NORMALS: regular rate, regular rhythm, No murmurs present (Cardio) and Peripheral pulses 2+ throughout RATE: regular rate RHYTHM: regular rhythm PERIPHERAL PULSES: Peripheral pulses 2+ throughout GI: COMMON NORMALS: Normal to inspection, nondistended, normoactive bowel sounds present : COMMON NORMALS: Yes no CVA tenderness BLADDER/KIDNEY EXAM: Yes no CVA tenderness Back/Pelvis: COMMON NORMALS: no CVA tenderness, thoracic and lumbar spine normal to inspection, no thoracic nor lumbar tenderness, thoraco-lumbar ROM normal and straight leg raise negative bilaterally Extremity: COMMON NORMALS: normal to inspection, full ROM, capillary refill normal, no calf tenderness and no pedal edema Neuro: COMMON NORMALS: patient oriented x3, moves all extremities, no focal motor deficits, no sensory deficits noted and gait normal CRANIAL NERVES: Yes CN normal except as noted Psych: COMMON NORMALS: mental status grossly normal and cooperative Skin: COMMON NORMALS: no rashes or lesions noted and turgor normal GENERAL SKIN EXAM: no rashes or lesions noted and turgor normal Course Vital Signs: Vital signs: Vital Signs Temperature 97.8 F 11/26/22 17:19 Pulse Rate 80 11/26/22 20:44 Respiratory Rate 16 11/26/22 20:44 Blood Pressure 120/68 11/26/22 20:44 Pulse Oximetry 97 11/26/22 20:44 Oxygen Delivery Sc thod 11/26/22 19:[address] [facility] - General Adult Medical Decision Making This patient made his way to our emergency department for reevaluation. He has had a longstanding history of left-sided headaches with some associated pain into his left neck sometimes into his left upper shoulder and into his left arm. He states he describes it as burning at times and other times as numbing in nature. He has had numerous evaluations that he shared with me to include evaluations by headache clinic in [place], neurologist, neurosurgeons etc. 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 He has no history of suggest exertional chest pain, coronary artery disease, or other worrisome etiologies to his symptoms. He described no history of recent or chronic illness etc. otherwise. He never described any focal motor weakness, difficulty with speech etc. His clinical evaluation revealed reproducibility of some of his symptoms along with palpation of the paracervical, trapezius and other shoulder girdle muscles. An EKG was obtained which was very reassuring. Basic labs to evaluate for thyroid dysfunction as well as electrolyte abnormalities were reassuring as well. He did not display any arrhythmias during monitoring while in the emergency department. I do not feel that the current presentation suggest a ongoing emergency medical condition such as cardiovascular, PROFESSOR OF GEOLOGY etc. in nature. I think he has some components of a cervical code genic headache likely related to adenitis for muscle spasm or stress release etc. I offered to give him a trial of tizanidine to see if that will help him get restorative sleep and muscle relaxation at night. He agreed to such. He is stable at this time and was given return precautions in detail. Medical Records I reviewed the patient's medical records. Lab Data I reviewed the patient's lab results. 11/26/22 19:57 Laboratory Results Sodium 137 mmol/L (136-145) 11/26/22 19:57 Potassium 4.0 mmol/L (3.5-5.1) 11/26/22 19:57 Chloride 101 mmol/L (98-107) 11/26/22 19:57 Carbon Dioxide 28 mmol/L (22-29) 11/26/22 19:57 Anion Gap 12.0 (5-19) 11/26/22 19:57 BUN 11 mg/dL (6-20) 11/26/22 19:57 Creatinine 0.7 mg/dL (0.7-1.2) 11/26/22 19:57 GFR Calculation 129.9 mL/min (90-130) 11/26/22 19:57 Glucose 104 mg/dL (65-115) 11/26/22 19:57 Calculated Osmolality 284 mOsm/kg (285-295) L 11/26/22 19:57 Calcium 9.4 mg/dL (8.5-10.5) 11/26/22 19:57 TSH 0.65 uIU/mL (0.27-4.20) 11/26/22 19:57 EKG Data EKG 1: I personally reviewed and interpreted this EKG as follows: Interpretation: IntervalPatient's resting EKG was contemporaneously reviewed. He has a ventricular rate of 74 bpm consistent with normal sinus rhythm., QRS duration, corrected QT interval overall normal. Axes were also normal. No acute ST-T wave changes noted. Discharge Plan Discharge Patient Disposition: Home Clinical Impression: Cervicogenic headache Condition: Stable Prescriptions: New tizanidine 4 mg capsule 4 mg PO BEDTIME PRN (Reason: muscle spasticity) Qty: 14 1RF Discharge Orders: Discharge ED (Routine); Ordered 11/26/22 Ordered By: Kumar Knight Referrals: Talya Villavicencio, FIREFIGHTING EQUIPMENT SPECIALIST [Primary Care Provider] - Discharge Diet: Usual diet Discharge Activity: Increase activity as tolerated Patient Instructions: Opioid Safety, Pain Management Activity Restrictions/Additional Instructions: As we discussed your clinical picture suggest that this may be a combination of cervical cervicogenic headaches as related to muscle spasm, stress etc. Your history and limited evaluation the emergency room to see me does not suggest a ongoing or serious emergency medical condition. We have given you a trial of medication to take at bedtime to see if they help improve your symptoms. You should follow-up with your regular doctor should the proved to be successful and you need to continue these medications. If you develop any new, worsening or other concerning symptoms you are welcome to return to this emergency department immediately for reevaluation. Coding Level of Care Code ED Felt Hat Flanging Operator for Ayanna Jimenez
--- NOTE | 2022-11-26 18:58 | ECG_ITS ---
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 Measurements Intervals [place] Rate: 74 P: 46 MI: 150 QRS: 62 QRSD: 100 T: 16 QT: 362 QTc: 402 Interpretive Statements SINUS RHYTHM Compared to ECG 11/14/2022 17:02:56 No significant changes Electronically Signed On 11-26-2022 21:56:37 BEAD STRINGER by Shai Medrano M.D. [id number]
[2022-11-26 19:00] VITALS: BP 129/81; PULSE 83; RESP 16; O2SAT 98
[2022-11-26 20:38] LABS: Blood Urea Nitrogen 11 mg/dL (6-20); Calcium 9.4 mg/dL (8.5-10.5); Carbon Dioxide 28 mmol/L (22-29); Chloride 101 mmol/L (98-107); Creatinine Clr Calc Pharmacy 168.1012; Glomerular Filtration Rate 129.9 mL/min (90-130); Glucose 104 mg/dL (65-115); Osmolality Calculated 284 mOsm/kg (285-295); Sodium 137 mmol/L (136-145); Thyroid Stimulating Hormone 0.65 uIU/mL (0.27-4.20)
[2022-11-26 20:44] VITALS: BP 120/68; PULSE 80; RESP 16; O2SAT 97
== END 2022-11-26 21:11 | disposition home or self-care (01) ==
PROVIDERS: Emergency Provider Emergency Medicine; PCP Nurse Practitioner Family
DX: G44.86 Cervicogenic headache (principal)
CPT/HCPCS: 80048; 84443; 93005; 99283

== ENCOUNTER 2023-01-11 08:27 | Outpatient (CLI) | payer BC, MEDICAID, SELFPAY ==
--- NOTE | 2023-01-11 08:45 | MR_ITS ---
WS: [id number] MRI BRAIN WITHOUT CONTRAST HISTORY: G43.019 - Migraine without aura, intractable COMPARISON: None available. TECHNIQUE: Diffusion imaging, multiplanar T1, T2 and FLAIR imaging obtained. No evidence for acute infarct or hemorrhage. Patel-white matter differentiation is normal. There are a few very small foci of increased T2 and FLAIR signal in the subcortical white matter LEFT frontal lo be which are very nonspecific. No signal abnormalities along the corpus callosum. No remote or acute infarcts are volume loss. Ventricles and extra-axial spaces are normal. No inferior displacement of cerebellar tonsils. The sella turcica and pituitary gland are unremarkabl e. Dural venous sinuses and chickaloon of Ann demonstrate no abnormality on this unenhanced studies. Paranasal sinuses: Mild mucoperiosteal thickening in the ethmoid and sphenoid sinuses. Slightly great er involvement of the LEFT sphenoid sinus. Mastoid air cells: Normal. Calvarium and scalp: Intact. MR/MR head wo con* [id number] IMPRESSION: 1. No acute infarct or prior infarct. 2. Very minimal subcortical T2 foci in the LEFT frontal lobe. Nonspecific. Emil ropriate for the patient's age. No prior infarct. 3. Mild sinus disease.
--- NOTE | 2023-01-11 10:15 | MR_ITS ---
WS: [id number] MRI THORACIC SPINE noncontrast. HISTORY: M50.90 - Cervical disc disorder, unspecified, LEFT arm numbness. COMPARISON: None available. TECHNIQUE: Multiplanar sequences are performed in sagittal and axial planes. Normal posterior thoracic alignment. Benign well-circumscribed hemangioma within T10. No fractures or marrow edema. No inferior displacement of cerebellar tonsils. Signal within the cord is normal. Conu s tapers normally at T12. T1-2: Small central disc protrusion very slightly contacts the ventral cord with no displacement. T2-3: Normal. T3-4: Normal. T4-5: Normal. T5-6: Normal. T6-7: Normal. T7-8: Normal. T8-9: Normal. T9-10: Mild facet arthritis. Mild bilateral foraminal narrowing. T10-11: Mild bilateral facet arthritis. Very mild narrowing of the LEFT foramen. T11-12: Mild facet joint arthritis with mild foraminal narrowing. Paravertebral soft tissues are negative. MR/MR thoracic spin wo con* [id number] IMPRESSION: 1. No high-grade central or foraminal stenosis or disc protrusions. 2. Small central disc protrusion at T1-2 was described on 07/06/2022. 3. Mild facet joint arthritis at T9-10 through T11-12. Resulting in mild jaden inal narrowing as above.
== END 2023-01-11 08:28 | disposition home or self-care (01) ==
LOC: RAD 08:31
PROVIDERS: PCP Nurse Practitioner Family; Visit Provider Specialist
DX: G43.019 Migraine without aura, intractable, without status migrainosus (principal); M50.90 Cervical disc disorder, unspecified, unspecified cervical region; M51.24 Other intervertebral disc displacement, thoracic region; M47.814 Spondylosis without myelopathy or radiculopathy, thoracic region
CPT/HCPCS: 70551; 72146

== ENCOUNTER → 2023-05-19 10:35 | Outpatient (BNVA) | payer BC, MEDICAID, SELFPAY | PROVIDERS: PCP Nurse Practitioner Family; Visit Provider Nurse Practitioner Family | DX: J02.9 Acute pharyngitis, unspecified (principal) | CPT/HCPCS: 87880 ==

== ENCOUNTER → 2023-05-25 12:54 | Outpatient (BNVA) | payer BC, MEDICAID, SELFPAY | PROVIDERS: PCP Nurse Practitioner Family; Visit Provider Internal Medicine | DX: R07.9 Chest pain, unspecified (principal) | CPT/HCPCS: 93005 ==

== ENCOUNTER 2023-05-30 11:58 | Outpatient (CLI) | payer BC, MEDICAID, SELFPAY ==
[2023-05-30 12:32] VITALS: BMI 25.9
--- NOTE | 2023-05-30 12:34 | ECG_ITS ---
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 Interpretive Statements NAME OF STUDY: TREADMILL STRESS TEST INDICATION: [Chest pain; Shortness of breath; Headache] Intraprocedure shortess of breath; Couplet pvc's noted that patient was symptomatic for. He had fluttering in chest that migrated up chest to the top of his head; Maximal effort was 80% of target then he requested stop due to symptoms. EXERCISE DATA: The patient was exercised by Merrill protocol. Baseline heart rate was 90 beats per minute. Baseline blood pressure was 137/89 millimeters of mercury. Target heart rate was 158 beats per minute. Maximum heart rate achieved was 151, which was 95% of the target heart rate. Maximum blood pressure was 156/71 millimeters of mercury. Total exercise time was 9 minutes and 13 seconds. Maximum METs achieved was 13.5. The reason for ending the test was shortness of breath. The patient complained of fluttering in chest and headache during the stress test, which then resolved at the end of the test. ELECTROCARDIOGRAM: BASELINE: Showed sinus rhythm, normal axis, no significant ST-T changes at the baseline noted. [] EXERCISE: At the peak exercise level, [] No significant ST-T changes suggestive of ischemia noted.Some PVCs were noted [] RECOVERY: During the recovery period, heart rate dropped appropriately. No significant ST-T changes in the recovery suggestive of ischemia noted. [] CONCLUSION: 1. Exercise capacity is good. 2. Heart rate response was suboptimal 3. Blood pressure response was appropriate 4. Symptoms not suggestive of ischemia. 5. Stress test is indeteminate as patient could not reach target heart rate and was symptomatic. At maximal heart rate, no evidence of ischemia. Infrequent PVCs were noted Electronically Signed On 06-07-2023 11:46:42 CDT by Shai Medrano M.D. [id number]
[2023-05-30 13:11] VITALS: BP 135/65; PULSE 62
== END 2023-05-30 11:59 | disposition home or self-care (01) ==
PROVIDERS: PCP Nurse Practitioner Family; Visit Provider Internal Medicine
DX: R07.9 Chest pain, unspecified (principal); R06.02 Shortness of breath
CPT/HCPCS: 93017

== ENCOUNTER 2023-06-09 12:10 | Outpatient (CLI) | payer BC, MEDICAID, SELFPAY ==
--- NOTE | 2023-06-09 12:15 | USCV_ITS ---
Sreedhar Cross Age: 33 Gender: M : 1990 Exam Date: 06/09/2023 12:30 Ordering Phys: Shai Medrano M.D ([email or web address]) Technologist: Lisa De Jesus [place] [facility] [place]: SOB, CP BP: 122 / 64 HR: 77 Rhythm: Sinus Technical Quality: Good MEASUREMENTS (Male / Female) Normal Values 2D ECHO LV Diastolic Diameter PLAX 4.5 cm 4.2 - 5.9 / 3.9 - 5.3 cm LV Systolic Diameter PLAX 3.4 cm IVS Diastolic Thickness 1.1 cm 0.6 - 1.0 / 0.6 - 0.9 cm IVS Systolic Thickness 1.3 cm LVPW Diastolic Thickness 1.1 cm 0.6 - 1.0 / 0.6 - 0.9 cm LVPW Systolic Thickness 1.6 cm LVOT Diameter 2.2 cm LV Ejection Fraction 2D Teich 49.9 % LV Ejection Fraction MOD 2C 56.8 % LV Ejection Fraction 2C AL 58.1 % LA Diameter 2.6 cm LA Width 2.6 cm LA Height 3.4 cm RA Width 3.5 cm RA Height 4.0 cm Aorta at Sinotubular Diameter 2.9 cm IVC Diameter 1.3 cm M-MODE Aortic Annulus Diameter 3.3 cm LA Ao Ratio MM 0.9 MV E Point Septal Separation 0.6 cm DOPPLER AV Peak Velocity 116.0 cm/s LVOT Peak Velocity 109.0 cm/s AV Area Cont Eq vti 4.2 cm squared AV Area Cont Eq pk 3.5 cm squared MV Peak Velocity 83.0 cm/s MV Area PHT 4.6 cm squared Mitral E to A Ratio 1.6 MV E' Velocity 42.5 cm/s Mitral E to MV E' Ratio 5.1 Mitral E to LV E' Lateral Ratio 4.3 Mitral E to LV E' Septal Ratio 6.2 TR Peak Velocity 79.5 cm/s TR Peak Gradient 2.5 mmHg Right Atrial Pressure 5.0 mmHg Pulmonary Artery Systolic Pressu 7.5 mmHg PV Peak Velocity 119.0 cm/s RV Acceleration Time 0.2 s RV Ejection Time 0.3 s RV AcT/ET 0.6 FINDINGS Left Ventricle Left ventricle is normal in size. LV systolic function is normal with EF 55 to 60%. No regional wall motion abnormalities are seen. Right Ventricle Normal in size and function Right Atrium Normal in size Left Atrium Normal in size Mitral Valve Structurally normal mitral valve. Mild mitral regurgitation Aortic Valve Structurally normal aortic valve. No significant stenosis or regurgitation. Tricuspid Valve Mild tricuspid regurgitation. Insufficient TR jet to calculate RVSP Pulmonic Valve Not well-visualized Pericardium Normal Aorta Normal in size IVC Appears to be normal CONCLUSIONS LV systolic function is normal with EF of 55-60% Mild mitral regurgitation Mild tricuspid regurgitation No comparison studies are available. Shai Medrano MD (Electronically Signed) Final Date: 27 June 2023 08:44 S
== END 2023-06-09 12:11 | disposition home or self-care (01) ==
PROVIDERS: PCP Nurse Practitioner Family; Visit Provider Internal Medicine
DX: I08.1 Rheumatic disorders of both mitral and tricuspid valves (principal); R06.02 Shortness of breath; R07.9 Chest pain, unspecified
CPT/HCPCS: 93306

== ENCOUNTER 2023-07-11 13:00 | Emergency (ER) | payer BC, MEDICAID, SELFPAY ==
[2023-07-11 13:21] VITALS: BP 131/90; PULSE 87; RESP 16; TEMP 36.6; O2SAT 96; BMI 25.8
--- NOTE | 2023-07-11 13:52 | ED_ITS ---
HPI - Neck Pain/Injury General: Chief Complaint: Neck Pain/Injury Stated Complaint: neck pain Time Seen by Provider: 07/11/23 13:37 Source: patient Mode of arrival: ambulatory Limitations: no limitations History of Present Illness: Patient is a 33-year-old male who presents to ED today with a complaint of chronic left-sided neck pain. This is a longstanding issue for patient and looking at previous documentation this complaint goes back as far as 09/2021. States it first started after he struck his head on a beam at work but then later tells me it all started after he was diagnosed with COVID. I first saw patient 05/2022 for this complaint. He has a multitude of associated complaints. It includes intermittent numbness and tingling to the left upper extremity, intermittent headache, left-sided neck pain, neck popping and crunching , intermittent blurry vision, feeling like the inferior periorbital areas feel wet , intermittent tongue numbness, and the list goes on. Since my initial en counter over a year ago he has had countless additional medical visits. To date he has seen [facility] emergency department several times, countless visits with his PCP, [facility] neurology with Dr. Haskins, neurology in [place], [facility] Orthopedic/Spine, [facility], [place] emergency department several times, [facility] pain management in [place], headache specialist clinic in [place], as well as several outlying clinics not associated with [facility]. Patient states he has been on countless different medications including amitriptyline, venlafaxine, pregabalin, gabapentin, propranolol, several different muscle relaxers, anti-inflammatories, steroids, narcotics all of which he either stopped due to unwanted side effects or because he felt they did not improve symptoms. Patient has had multiple imaging modalities for work-up including CT, CTA, MRI, and MRA of his head/neck. He has had nerve conduction studies. Results of last MRI is listed below: MR/MR cervical spin wo con? 1.? C4-5; Central to LEFT paracentral disc protrusion with moderate LEFT foraminal narrowing. Osteophytes contributing to the moderate foraminal stenosis also. 2.? Small central disc protrusion at C5-6 and foraminal osteophytes with no high-grade stenosis. 3.? C6-7; moderate RIGHT foraminal disc osteophyte causing moderate foraminal stenosis. 4.? Shallow central disc protrusion at T1-2. Dr. Ivania Davalos Patient's history is quite overwhelming. I spent an incredible amount of time with patient and reviewing all of his previous documentation. MD complaint: neck pain Onset (ago): year(s) Radiation: left lateral Severity: intermittent Duration: intermittent Associated symptoms: Reports headache(s); Denies difficulty walking, dizziness or nausea Treatments prior to arrival: acetaminophen, ibuprofen, naproxen, prescription analgesic, cold therapy and heat therapy Review of Systems Const: Denies: fever(s), chills, body aches, fatigue or malaise Eyes: Reports: other (feels like bilateral inferior periorbital areas feel wet); Denies: change in vision, blurry vision, blind spots, photophobia, eye discomfort, eye discharge, floaters or seeing flashes ENMT: Denies: throat pain, odynophagia, ear or mastoid pain, ear discharge, change in hearing, nasal discharge, nasal congestion or sinus pain Card: Reports: chest pain; Denies: palpitations, irregular heart rhythm, edema, swelling of feet/ankles, lightheadedness, syncope or pre-syncope Resp: Denies: dyspnea, productive cough, non-productive cough or chest congestion GI: Denies: abdominal pain, nausea, vomiting or diarrhea Musc: Reports: neck pain and extremity pain; Denies: back pain, extremity swelling, joint pain, joint swelling, joint redness or joint warmth Skin/Breast: Denies: rash Neuro: Reports: headache(s), numbness in extremities and sensory changes; Denies: difficulty walking, dizziness, vertigo, confusion, behavioral changes or seizure-like activity PFSH ED PFSH: Medical History No significant past medical history Surgical History No significant past surgical history Family History Father Hypertension Social History Smoking and tobacco status: current every day smoker cigarettes Alcohol intake: never Physical Exam Const: COMMON NORMALS: no acute distress, average body habitus, patient oriented x3, no limitations, healthy appearing, alert and well nourished GENERAL APPEARANCE: cooperative ORIENTATION/CONSCIOUSNESS: Yes awake, Yes oriented to person, Yes oriented to place and Yes oriented to time HENMT: COMMON NORMALS: normocephalic and atraumatic HEAD & SCALP: normal to inspection, normocephalic and atraumatic FACE & SINUS: normal facial exam Eye: COMMON NORMALS: Equal, round and reactive pupils present and EOMs intact bilaterally GENERAL EYE: appearance normal, both eyes and all related structures and normal light reflex PUPIL: Yes Equal, round and reactive pupils present DIRECT OPHTHALMOSCOPY: Yes normal light reflex Neck/C-Spine: COMMON NORMALS: full ROM, no lymphadenopathy, no meningeal signs and no JVD GENERAL: Yes normal visual inspection CERVICAL SPINE: Yes cervical ROM normal, No Cervical spine tenderness and No step off deformity Chest: COMMONS NORMALS: normal inspection of the chest and normal palpation of entire chest wall Resp: COMMON NORMALS: normal respiratory effort and clear to auscultation bilaterally AUSCULTATION: clear to auscultation bilaterally Cardio: COMMON NORMALS: no JVD, regular rate and regular rhythm RATE: regular rate RHYTHM: regular rhythm Back/Pelvis: COMMON NORMALS: thoracic and lumbar spine normal to inspection, no thoracic nor lumbar tenderness and thoraco-lumbar ROM normal Extremity: COMMON NORMALS: normal to inspection GENERAL: Yes normal exam except as noted Neuro: [place] COMA SCALE: document [facility] findings [place] coma scale eye opening: Spontaneous [place] coma scale verbal response: Orientated [place] coma scale motor response: Obey commands [place] coma scale total score: 15 COMMON NORMALS: patient oriented x3, CN's II-XII intact bilaterally, moves all extremities, no focal motor deficits, no sensory deficits noted and gait normal SENSORIUM/ORIENTATION: Yes alert, Yes oriented to person, Yes oriented to place and Yes oriented to time MENINGEAL SIGNS: Yes no meningeal signs MOTOR EXAM: 5/5 motor strength present throughout Skin: COMMON NORMALS: no rashes or lesions noted GENERAL SKIN EXAM: no rashes or lesions noted Course Vital Signs: Vital signs: Vital Signs Temperature 97.9 F 07/11/23 13:21 Pulse Rate 87 07/11/23 13:21 Respiratory Rate 16 07/11/23 13:21 Blood Pressure 131/90 07/11/23 13:21 Pulse Oximetry 96 07/11/23 13:21 Oxygen Delivery Me thod Room Air 07/11/23 13:21 MDM - Neck Pain/Injury Medical Decision Making At this point patient's symptoms have been present for quite some time. His history of illness is quite overwhelming and extensive. As outlined in the HPI he has sought countless medical evaluations through multiple medical specialties. To date patient has received every type of imaging I can think of ordering and has tried countless different medications all without relief. I really don't know what else to offer him from an emergency standpoint. He seems to have reservations about anything I suggest. At this time he is stable for discharge here. He can continue to follow up with PCP and/or his specialists. No radiology studies performed this visit Discharge Plan Discharge Patient Disposition: Home Clinical Impression: Chronic neck pain Condition: Stable Prescriptions: No Action clonidine HCl 0.1 mg tablet 0.1 mg PO .prn Qty: 30 0RF Rx Instructions: take one tablet if systolic blood pressure is greater than 180 as needed. ibuprofen 800 mg tablet 800 mg PO Q8H PRN (Reason: pain) Qty: 30 0RF Discharge Orders: Discharge ED (Routine); Ordered 07/11/23 Ordered By: Nicole Batista Referrals: Abhay Duran FNP [Primary Care Provider] - Coding Level of Care Code ED Chemistry Professor for Ayanna Jimenez
== END 2023-07-11 14:26 | disposition home or self-care (01) ==
PROVIDERS: Emergency Provider Physician Assistant; PCP Nurse Practitioner
DX: G89.29 Other chronic pain (principal); M54.2 Cervicalgia; F17.210 Nicotine dependence, cigarettes, uncomplicated
CPT/HCPCS: 99281

== ENCOUNTER → 2023-10-27 15:42 | Outpatient (BNVA) | payer BC, MEDICAID, SELFPAY | PROVIDERS: PCP Nurse Practitioner Family; Visit Provider Nurse Practitioner Family | DX: R10.9 Unspecified abdominal pain (principal) | CPT/HCPCS: 81000 ==

== ENCOUNTER 2024-01-12 16:10 | Emergency (ER) | payer BC, MEDICAID, SELFPAY ==
[2024-01-12 16:20] VITALS: BP 170/101; PULSE 95; RESP 18; TEMP 36.7; O2SAT 99
--- NOTE | 2024-01-12 17:32 | W.ED.RECABL ---
HPI - Recheck/Abnormal Lab/Rx General: Chief Complaint: Recheck/Abnormal Lab/Rx Stated Complaint: abnormal feelings Time Seen by Provider: 01/12/24 17:22 Source: patient Mode of arrival: ambulatory Limitations: no limitations History of Present Illness: 33-year-old male states he had some people over his house last night states that he does not drink alcohol and does not do drugs but states he had felt woozy and tired he states he got a home testing kit and he states that he tested positive for alcohol and tramadol he went to come and have his urine checked he states his job is very strict to see if he did test positive for anything. He has no medical complaints at this time Review of Systems Const: Denies: fever(s), chills, body aches or change in appetite ENMT: Denies: throat pain or dental pain Card: Denies: chest pain Resp: Denies: dyspnea GI: Denies: abdominal pain, nausea, vomiting or diarrhea Musc: Denies: neck pain or back pain Skin/Breast: Denies: rash Neuro: Denies: headache(s) PFSH ED PFSH: Medical History No significant past medical history Surgical History No significant past surgical history Family History Father Hypertension Social History Smoking and tobacco/nicotine status: current every day tobacco/nicotine user cigarettes Alcohol intake: never Physical Exam Const: COMMON NORMALS: no acute distress, patient oriented x3 and healthy appearing HENMT: COMMON NORMALS: normocephalic and atraumatic HEAD & SCALP: normocephalic and atraumatic Eye: COMMON NORMALS: conjunctivae normal CONJUNCTIVA: Yes conjunctivae normal Neck/C-Spine: COMMON NORMALS: full ROM and supple Chest: COMMONS NORMALS: normal inspection of the chest Resp: COMMON NORMALS: normal respiratory effort Cardio: COMMON NORMALS: regular rate RATE: regular rate Extremity: COMMON NORMALS: normal to inspection and full ROM Neuro: COMMON NORMALS: patient oriented x3, moves all extremities and no focal motor deficits Psych: COMMON NORMALS: mental status grossly normal, Normal thought process present and cooperative THOUGHT PROCESS: Normal thought process present Skin: COMMON NORMALS: no rashes or lesions noted and no wounds GENERAL SKIN EXAM: no rashes or lesions noted Course Vital Signs: Vital signs: Vital Signs Temperature 98.1 F 01/12/24 16:20 Pulse Rate 95 01/12/24 16:20 Respiratory Rate 18 01/12/24 16:20 Blood Pressure 170/101 01/12/24 16:20 Pulse Oximetry 99 01/12/24 16:20 Oxygen Delivery Me thod Room Air 01/12/24 16:20 MDM - Recheck/Abnormal Lab/Rx Medical Decision Making Patient presents here with concerns that he had been slipped a drug his drug screen here was negative he is well-appearing here he is stable for discharge at this time Medical Records I reviewed the patient's medical records. Lab Data I reviewed the patient's lab results. Laboratory Results Urine Opiates Screen Negative ng/mL (Negative) 01/12/24 17:24 Ur Barbiturates Screen Negative ng/mL (Negative) 01/12/24 17:24 Ur Phencyclidine Scrn Negative ng/mL (Negative) 01/12/24 17:24 Ur Amphetamines Screen Negative ng/mL (Negative) 01/12/24 17:24 U Benzodiazepines Scrn Negative ng/mL (Negative) 01/12/24 17:24 Urine Cocaine Screen Negative ng/mL (Negative) 01/12/24 17:24 U Marijuana (THC) Screen Negative ng/mL (Negative) 01/12/24 17:24 No radiology studies performed this visit Discharge Plan Discharge Patient Disposition: Home Clinical Impression: Encounter for drug screening Condition: Stable Prescriptions: No Action No Known Home Medications Discharge Orders: Discharge ED (Routine); Ordered 01/12/24 Ordered By: Yuly Brock Referrals: Talya Villavicencio NP [Primary Care Provider] - 4-7 days Discharge Diet: Advance as tolerated Discharge Activity: Resume usual activity Coding Level of Care Code ED Gardening Instructor for Ayanna Jimenez
[2024-01-12 17:56] LABS: Amphetamines Screen Urine Negative (Negative); Barbiturates Screen Urine Negative (Negative); Benzodiazepines Screen Urine Negative (Negative); Cocaine Screen Urine Negative (Negative); Opiate Screen Urine Negative (Negative); PCP Screen Urine Negative (Negative); THC Screen Urine Negative (Negative)
== END 2024-01-12 18:18 | disposition home or self-care (01) ==
PROVIDERS: Emergency Provider Emergency Medicine; PCP Nurse Practitioner Family
DX: Z00.00 Encounter for general adult medical examination without abnormal findings (principal); F17.210 Nicotine dependence, cigarettes, uncomplicated
CPT/HCPCS: 80306; 99283

== ENCOUNTER 2025-05-22 06:39 | Outpatient (CLI) | payer BC, MEDICAID, SELFPAY ==
--- NOTE | 2025-05-22 06:43 | MR_ITS ---
WS: [id number] MRI CERVICAL SPINE NONCONTRAST TECHNIQUE: Sagittal T1, T2 and STIR imaging. Axial T2, gradient, and fiesta imaging. CLINICAL INFORMATION: CERVICALGIA, WEAKNESS, PARESTHESIA OF SKIN COMPARISON: 2021 FINDINGS: Straightening of the normal cervical lordosis. Mild disc bulging at C4-C5 and C5-C6. C2-C3: Mild LEFT bony foraminal narrowing. C3-C4: Mild facet arthropathy. Mild LEFT bony foraminal narrowing. C4-C5: LEFT paracentral protrusion with a small annular fissure similar to previous. Mild central canal stenosis. Slight indentation on the cervical cord. Moderate LEFT bony foraminal narrowing. Mild facet arthropathy. C5-C6: Shallow LEFT paracentral protrusion. Slight indentation of the cervical cord. Mild central canal stenosis. Moderate LEFT foraminal narrowing. Uncovertebral joint hypertrophy. Mild facet arthropathy. C6-C7: Shallow RIGHT paracentral protrusion. Slight indentation on the cervical cord. Mild central canal stenosis. Moderate RIGHT bony foraminal narrowing. C7-T1: Shallow RIGHT paracentral protrusion. Mild to moderate RIGHT foraminal narrowing. Spinal canal is patent. Shallow central protrusions at T1-2 and T2-T3 unchanged. Visualized brain stem structures: Normal. Prevertebral soft tissues: Normal. MR/MR cervical spin wo con* [id number] IMPRESSION: 1. Mild central canal stenosis with small shallow disc protrusions. Mild centr al canal stenosis C4-C5 C5-C6 and C6-C7 similar to previous. Disc protrusion at C5-C6 is slightly progressed. 2. Moderate bony foraminal narrowing worse at LEFT C3-4, LEFT C4-5, LEFT C5-6 and RIGHT C6-7.
== END 2025-05-22 06:40 | disposition home or self-care (01) ==
LOC: RAD 06:40
PROVIDERS: PCP Nurse Practitioner; Visit Provider Nurse Practitioner
DX: M50.222 Other cervical disc displacement at C5-C6 level (principal); M99.61 Osseous and subluxation stenosis of intervertebral foramina of cervical region; R53.1 Weakness; R20.2 Paresthesia of skin
CPT/HCPCS: 72141